=== PATIENT | female | born 1970 ===

== ENCOUNTER 2020-10-20 08:27 | Day surgery (SDC) | payer BC ==
[~2020-10-20 08:27] MED LIST: Lactated Ringers 1,000 ML IV SCH; Lidocaine 2% 5 ML SDV ONE; Propofol 200 MG/20 ML SDV ONE; Sodium Chloride 0.9% 10 ML SDV IV PRN; Sodium Chloride 0.9% 10 ML Syringe FLUSH PRN; Sodium Chloride 0.9% 2.5 ML Syringe FLUSH PRN
--- NOTE | 2020-10-20 09:03 | PCM.PREANE ---
Preanesthetic Assessment - Anesthesia/Transfusion/Family Hx Anesthesia History: Prior Anesthesia Without Reaction Family History of Anesthesia Reaction: No Transfusion History: No Prior Transfusion(s) Intubation History: Unknown - Review of Systems General: No Symptoms Pulmonary: No Symptoms Cardiovascular: No Symptoms Gastrointestinal: Hematochezia (positive cologuard test) Neurological: No Symptoms Other: Reports: None - Physical Assessment Vital Signs: Last Vital Signs Temp 36.7 C 10/20/20 08:57 Pulse 93 10/20/20 08:57 Resp 16 10/20/20 08:57 BP 127/83 10/20/20 08:57 Pulse Ox 98 10/20/20 08:57 Height: 5 ft 4 in Weight: 90.718 kg ASA Class: 2 Mental Status: Alert & Oriented x3 Airway Class: Mallampati = 1 Dentition: Reports: Normal Dentition, [place](s) (x1 - temporary left lower (back)) Thyro-Mental Finger Breadths: 3 Mouth Opening Finger Breadths: 3 - Lab Values: Laboratory Last Values Urine HCG, Qual NEGATIVE (NEGATIVE) 10/20/20 08:40 - Allergies Allergies/Adverse Reactions: Allergies Allergy/AdvReac Type Severity Reaction Status Date / Time loracarbef [From Lorabid] Allergy Rash Verified 10/14/20 13:56 Penicillins Allergy Rash Verified 10/14/20 13:56 Sulfa (Sulfonamide Allergy Rash Verified 10/14/20 13:56 Antibiotics) - Blood Blood Available: No - Anesthesia Plan Pre-Op Medication Ordered: None - Acknowledgements Anesthesia Type Planned: MAC Pt an Appropriate Candidate for the Planned Anesthesia: Yes Alternatives and Risks of Anesthesia Discussed w Pt/Guardian: Yes Pt/Guardian Understands and Agrees with Anesthesia Plan: Yes PreAnesthesia Questionnaire HEENT History: Reports: Allergic Rhinitis, Other (See Below) Other HEENT History: wears glasses Respiratory History: Reports: Asthma (exercize induced asthma), Other (See Below) Other Respiratory History: uses an Albuterol inhaler occasionally for seasonal allergies- has not used recently Genitourinary History: Reports: Renal Calculus Musculoskeletal History: Reports: Fracture, Other (See Below) (flat feet bilateraly, Delgadillo's neuroma rt. foot) Other Musculoskeletal History: left wrist Neurological History: Reports: Other (See Below) Other Neuro History: hx of motion sickness Endocrine/Metabolic History: Reports: Obesity/BMI 30+ (BMI 34.3) - Past Surgical History Head Surgeries/Procedures: Reports: None HEENT Surgical History: Reports: Adenoidectomy Musculoskeletal Surgical History: Reports: ORIF Other Musculoskeletal Surgeries/Procedures:: ORIF left wrist- hardware removed - SUBSTANCE USE Tobacco Use Status *Q: Never Tobacco User Recreational Drug Use History: No - HOME MEDS Home Medications: Home Meds Albuterol Sulfate [Albuterol Sulfate HFA] 1 puff INH Q4H PRN 10/14/20 [History] Fexofenadine HCl [Carmelita Allergy] 60 mg PO DAILY 10/14/20 [History] Fluticasone Propionate [Flonase Allergy Relief] 1 spray NASBOTH DAILY PRN 10/14/20 [History] Montelukast Sodium 10 mg PO DAILY 10/14/20 [History] - CURRENT (IN HOUSE) MEDS Current Meds: Current Medications Lactated Ringer's (Ringers, Lactated) 1,000 mls @ 125 mls/hr IV ASDIRECTED MARCELLA Sodium Chloride (Saline Flush) 2.5 ml FLUSH ASDIRECTED PRN PRN Reason: Keep Vein Open Sodium Chloride (Normal Saline) 10 ml IV ASDIRECTED PRN PRN Reason: IV Use Discontinued Medications Lidocaine (Xylocaine-Mpf 2%) Confirm Administered Dose 5 ml .ROUTE .STK-MED ONE Stop: 10/20/20 06:35 Propofol (Diprivan 20 Ml) Confirm Administered Dose 400 mg .ROUTE .STK-MED ONE Stop: 10/20/20 06:36
[2020-10-20] MEDS ORDERED: Midazolam 1 MG/ML 2 ML SDV ONE (11:56)
--- NOTE | 2020-10-20 13:38 | PCM.POSTAN ---
POST ANESTHESIA ASSESSMENT - MENTAL STATUS Mental Status: Alert, Oriented - VITAL SIGNS Vital Signs: Last Vital Signs Temp 36.2 C 10/20/20 13:20 Pulse 76 10/20/20 13:20 Resp 14 10/20/20 13:20 BP 115/68 10/20/20 13:20 Pulse Ox 97 10/20/20 13:20 - RESPIRATORY Respiratory Status: Respiratory Rate WNL, Airway Patent, O2 Saturation Stable - CARDIOVASCULAR CV Status: Pulse Rate WNL, Blood Pressure Stable - GASTROINTESTINAL GI Status: No Symptoms - PAIN Pain Score: 0 - POST OP HYDRATION Hydration Status: Adequate & Stable - OBSERVATIONS Free Text/Narrative:: No anesthesia problems
--- NOTE | 2020-10-20 13:39 | PCM48HPAN ---
Post Anesthesia Note - EVALUATION WITHIN 48HRS OF ANESTHETIC Vital Signs in Normal Range: Yes Patient Participated in Evaluation: Yes Respiratory Function Stable: Yes Airway Patent: Yes Cardiovascular Function Stable: Yes Hydration Status Stable: Yes Pain Control Satisfactory: Yes Nausea and Vomiting Control Satisfactory: Yes Mental Status Recovered: Yes Vital Signs: Last Vital Signs Temp 36.2 C 10/20/20 13:20 Pulse 76 10/20/20 13:20 Resp 14 10/20/20 13:20 BP 115/68 10/20/20 13:20 Pulse Ox 97 10/20/20 13:20 - COMMENTS/OBSERVATIONS Free Text/Narrative:: No anesthesia problems
--- NOTE | 2020-10-20 15:09 | PCM.OPNOTE ---
- General Post-Op/Procedure Note Date of Surgery/Procedure: 10/20/20 Operative Procedure(s): Diagnostic colonoscopy Findings: Diverticulosis, rectal polyp Pre Op Diagnosis: Positive cologuard test Post-Op Diagnosis: Sigmoid colon polyp, diverticulosis Anesthesia Technique: [facility] [place] Primary Surgeon: Teresita Chau Condition: Good Free Text/Narrative:: Intake & Output 10/20/20 10/20/20 10/20/20 06:59 14:59 22:59 Intake Total 1200 Balance 1200
--- NOTE | 2020-10-21 15:09 | OR ---
SURGEON: TERESITA CHAU MD DATE OF PROCEDURE: 10/20/2020 PREOPERATIVE DIAGNOSIS: Positive Cologuard test. POSTOPERATIVE DIAGNOSES: 1. Diverticulosis. 2. Rectal polyp. PROCEDURE PERFORMED: Diagnostic colonoscopy with polypectomy. PRIMARY SURGEON: Teresita Chau MD ANESTHESIA: MAC. INSTRUMENT USED: Olympus colonoscope. EXTENT OF EXAM: To the cecum. PREPARATION: Good. LIMITATIONS: None. INDICATIONS FOR EXAMINATION: The patient is a 50-year-old female who presents to clinic with a positive Cologuard test. I explained the need for diagnostic colonoscopy. The patient and I discussed the procedure, expected perioperative course, and the risks. She verbalized understanding and wishes to proceed. PROCEDURE IN DETAIL: The patient was brought into the endoscopy suite, placed in the left lateral decubitus position. A time-out was completed verifying the patient's name, age, date of , allergies, and procedure to be performed. Monitored anesthesia care was induced and continuous oxygen was provided via nasal cannula throughout the procedure. After adequate sedation was achieved, a digital rectal exam was performed. This exam was within normal limits. A well-lubricated colonoscope was inserted in the rectum and advanced under direct visualization to the level of the cecum. The cecum was identified by both visual and anatomic landmarks. A photograph was taken of the cecal cap as well as with the scope retroflexed within the cecum. The scope was then fully withdrawn while examining the color, texture, anatomy, and integrity of the mucosa from the cecum to the anal canal. The patient was noted to have mild diverticulosis within the sigmoid colon. The scope was brought into the rectum and a small sessile polyp was noted. This was removed in piecemeal fashion using cold biopsy forceps. The scope was then retroflexed within the rectum to allow visualization of the anal canal opening. This appeared normal and a photograph was taken. The scope was then straightened out and fully withdrawn. The cecum to anus time was 12 minutes. The patient tolerated the procedure well and was transferred to the PACU in stable condition. ENDOSCOPIC DIAGNOSES: 1. Diverticulosis. 2. Rectal polyp. RECOMMENDATIONS: Follow up in clinic in 2 weeks. NAVEEN ROSAS /[id number]
== END 2020-10-20 13:43 | disposition home or self-care (01) ==
LOC: MW.SDS 08:27
PROVIDERS: ATTEND Surgery
DX: K62.1 Rectal polyp (principal); K57.30 Diverticulosis of large intestine without perforation or abscess without bleeding; Z88.8 Allergy status to other drugs, medicaments and biological substances; Z88.0 Allergy status to penicillin; Z88.2 Allergy status to sulfonamides; Z79.899 Other long term (current) drug therapy; Z98.890 Other specified postprocedural states
CPT/HCPCS: 45380; 81025; 88305; J2250; J2704; J7120